=== PATIENT | female | born 1990 | race Caucasian/White ===

== ENCOUNTER 2021-02-06 20:55 | Inpatient (IN) | payer OTHER ==
[2021-02-06] MEDS ORDERED: PROMETHAZINE HCL 25 MG/1 ML VIAL IVPUSH ONE (22:20)
[2021-02-06] MEDS ORDERED: BUTORPHANOL TARTRATE 2 MG/ML VIAL IVPB PRN (22:20)
[2021-02-06] MEDS ORDERED: ELECTROLYTE-148 SOLN 1,000 ML IV SCH (22:30)
[2021-02-06] MEDS ORDERED: OXYTOCIN 30 UNITS in 0.9% NS 30 UNIT/500 ML INFUS.BAG IVPB SCH (23:00)
[2021-02-06 23:59] LABS: BASO % 0.7 % (0-2.0); EOS % 1.1 % (0-4.5); HEMATOCRIT 28.6 % (32.4-45.2); HEMOGLOBIN 9.2 GM/dL (10.7-15.3); LYMPH % 23.8 % (8-40); MCH 24.1 pg (25.7-33.7); MEAN CELL VOLUME 75.2 fl (80-96); MEAN PLT VOLUME 8.5 fl (7.5-11.1); MONO % 6.3 % (3.8-10.2); NEUT % 68.1 % (42.8-82.8); PLATELET COUNT 278 10^3/uL (134-434); RBC 3.81 M/mm3 (3.60-5.2); WHITE BLOOD COUNT 7.4 K/mm3 (4.0-10.0)
[2021-02-07 00:04] LABS: PROTHROMBIN TIME (PATIENT) 11.2 SEC (9.7-13.0)
[2021-02-07 00:06] LABS: ACTIVATED PTT 24.1 SECONDS (25.2-36.5)
[2021-02-07 00:21] LABS: CALCIUM 8.8 mg/dL (8.5-10.1)
[2021-02-07 00:22] LABS: BLOOD UREA NITROGEN 10.7 mg/dL (7-18)
[2021-02-07 00:25] LABS: CREATININE 0.5 mg/dL (0.55-1.3)
[2021-02-07 00:46] VITALS: BMI 29.5
[2021-02-07] MEDS ORDERED: BUTORPHANOL TARTRATE 2 MG/ML VIAL ONE (01:04)
[2021-02-07] MEDS ORDERED: PROMETHAZINE HCL 25 MG/1 ML VIAL ONE (01:04)
[2021-02-07] MEDS ORDERED: OXYTOCIN 30 UNITS in 0.9% NS 30 UNIT/500 ML INFUS.BAG IVPB ONE (01:05)
[2021-02-07] MEDS ORDERED: OXYTOCIN 20 UNITS in 0.9% NS 20 UNIT/1,000 ML INFUS.BAG IV ONE (05:06)
[2021-02-07] MEDS ORDERED: LIDOCAINE HCL 1% PRESERVATIVE FREE - 30ML VIAL ONE (05:06)
[2021-02-07] MEDS ORDERED: WITCH HAZEL 50% (TUCKS) 40 PAD/JAR PAD TP PRN (06:35)
[2021-02-07] MEDS ORDERED: BISACODYL 10 MG SUPP.RECT RC PRN (06:35)
[2021-02-07] MEDS ORDERED: oxyCODONE HCL 5 MG TABLET PO PRN (06:35)
[2021-02-07] MEDS ORDERED: METHYLERGONOVINE MALEATE 0.2 MG/1 ML AMP IM PRN (06:35)
[2021-02-07] MEDS ORDERED: BENZOCAINE 20% 57 GM BOTTLE TP PRN (06:35)
[2021-02-07] MEDS ORDERED: BENZOCAINE 28 GM HEMORRHOIDAL OINTMENT TP PRN (06:35)
[2021-02-07] MEDS ORDERED: ACETAMINOPHEN 325 MG TABLET (FP) PO PRN (06:35)
[2021-02-07] MEDS ORDERED: OXYTOCIN 20 UNITS in 0.9% NS 20 UNIT/1,000 ML INFUS.BAG IV SCH (06:45)
[2021-02-07] MEDS: IBUPROFEN 600 MG TABLET (FP) PO PRN ×2 (07:38→20:50)
[2021-02-07] MEDS ORDERED: IBUPROFEN 600 MG TABLET (FP) PO ONE (07:39)
[2021-02-07] MEDS: PRENATAL VITAMINS W/ FOLIC ACID TABLET (FP) PO SCH (09:10)
[2021-02-07] MEDS: FERROUS SO4 325 MG TABLET (FP) PO SCH ×3 (09:11→17:29)
[2021-02-08 07:43] LABS: BASO % 0.4 % (0-2.0); EOS % 1.3 % (0-4.5); HEMATOCRIT 26.9 % (32.4-45.2); HEMOGLOBIN 8.7 GM/dL (10.7-15.3); LYMPH % 26.9 % (8-40); MCH 25.1 pg (25.7-33.7); MCHC 32.6 g/dl (32.0-36.0); MONO % 6.7 % (3.8-10.2); NEUT % 64.7 % (42.8-82.8); PLATELET COUNT 231 10^3/uL (134-434); RBC 3.49 M/mm3 (3.60-5.2); RDW 17.4 % (11.6-15.6); WHITE BLOOD COUNT 9.6 K/mm3 (4.0-10.0)
[2021-02-08] MEDS: FERROUS SO4 325 MG TABLET (FP) PO SCH ×3 (08:00→17:19)
[2021-02-08] MEDS: PRENATAL VITAMINS W/ FOLIC ACID TABLET (FP) PO SCH (09:10)
[2021-02-08 21:30] VITALS: PULSE 97
[2021-02-08] MEDS ORDERED: SENNOSIDES/DOCUSATE COMBO (SENNA PLUS) TABLET (UD) PO PRN (22:00)
[2021-02-08] MEDS: IBUPROFEN 600 MG TABLET (FP) PO PRN (23:46)
[2021-02-09] MEDS: FERROUS SO4 325 MG TABLET (FP) PO SCH ×2 (09:00→13:34)
[2021-02-09] MEDS: PRENATAL VITAMINS W/ FOLIC ACID TABLET (FP) PO SCH (09:08)
[2021-02-09] MEDS: IBUPROFEN 600 MG TABLET (FP) PO PRN (09:09)
[2021-02-09 09:17] VITALS: BP 126/62; TEMP 98.3
== END 2021-02-09 12:55 | disposition home or self-care (01) | DRG 560 ==
LOC: JDEL 20:55 → JLDR 21:40 → JDEL 22:01 → J3W 02-07 07:45
PROVIDERS: ADMIT Obstetrics & Gynecology; ATTEND Obstetrics & Gynecology
PROC: 10E0XZZ Delivery of Products of Conception, External Approach (ICD-10-PCS; principal; 2021-02-07)
DX: O24.429 Gestational diabetes mellitus in childbirth, unspecified control (principal); Z3A.38 38 weeks gestation of pregnancy; Z37.0 Single live birth
CPT/HCPCS: 36415; 59409; 80048; 85025; 85610; 85730; 86780; 86850; 86900; 86901; C9803; U0003; U0005